=== PATIENT | female | born 1970 | race Hispanic/Latino ===

== ENCOUNTER 2017-06-21 16:13 | Emergency (ER) | payer OTHER ==
[2017-06-21 16:44] VITALS: TEMP 97.5
--- NOTE | 2017-06-21 16:54 | ED PDOC ---
Arrival/HPI - General Chief Complaint: Headache Time Seen by Provider: 06/21/17 16:17 Historian: Patient - History of Present Illness Narrative History of Present Illness (Text): 06/21/17 16:46 A 46 year old female, whose past medical history includes type 2 diabetes and subdural hematoma in 2010, presents to the emergency department complaining of intermittent frontal headaches for the past 2 weeks. Patient reports she has been feeling off balance and not like herself. Patient is concerned due to her history and presented for further evaluation. Patient denies any fever, chills, nausea, vomiting, abdominal pain, urinary symptoms, chest pain, shortness of breath, cough, lower extremity weakness, visual changes or any other complaints. Time/Duration: Other (2 weeks) Symptom Course: Intermittent Quality: Other Context: Home, Work Past Medical History - Provider Review Nursing Documentation Reviewed: Yes - Infectious Disease Hx of Infectious Diseases: None - Endocrine/Metabolic Hx Diabetes Mellitus Type 1: Yes - Psychiatric Hx Substance Use: No - Surgical History Hx Thyroidectomy: Yes Family/Social History - Physician Review Nursing Documentation Reviewed: Yes Family/Social History: No Known Family HX Smoking Status: Never Smoked Hx Alcohol Use: Yes (1-2 drinks per night) Frequency of alcohol use: Daily Hx Substance Use: No Allergies/Home Meds Allergies/Adverse Reactions: Allergies No Known Allergies Allergy (Verified 06/21/17 16:33) Home Medications: Home Meds Medication Instructions Recorded Confirmed Insulin Aspart [Novolog Flexpen] 1 unit INJ ACHS 06/21/17 06/21/17 Insulin Detemir [Levemir] 32 unit INJ HS 06/21/17 06/21/17 Norethindrone-E.estradiol-Iron 1 tab PO DAILY 06/21/17 06/21/17 [Junel Fe 1 mg-20 Mcg Tablet] Review of Systems - Physician Review All systems were reviewed & negative as marked: Yes - Review of Systems Constitutional: absent: Fevers, Night Sweats Eyes: absent: Vision Changes Respiratory: absent: SOB, Cough Cardiovascular: absent: Chest Pain Gastrointestinal: absent: Abdominal Pain, Nausea, Vomiting Genitourinary Female: absent: Dysuria, Frequency, Hematuria Neurological: Headache, Dizziness Physical Exam Vital Signs Reviewed: Yes Vital Signs Temp Pulse Resp BP Pulse Ox 06/21/17 21:05 79 18 151/97 H 98 06/21/17 17:19 85 18 137/95 H 97 06/21/17 17:02 70 157/107 H 06/21/17 16:37 97.5 F L 85 16 98 06/21/17 16:27 97.5 F L 86 18 154/107 H 96 Temperature: Afebrile Blood Pressure: Hypertensive Pulse: Regular Respiratory Rate: Normal Appearance: Positive for: Well-Appearing, Non-Toxic, Comfortable Pain Distress: None Mental Status: Positive for: Alert and Oriented X 3 - Systems Exam Head: Present: Atraumatic, Normocephalic Pupils: Present: PERRL Extroacular Muscles: Present: EOMI Conjunctiva: Present: Normal Mouth: Present: Moist Mucous Membranes Pharnyx: No: ERYTHEMA, EXUDATE Neck: Present: Normal Range of Motion Respiratory/Chest: Present: Clear to Auscultation, Good Air Exchange. No: Respiratory Distress, Accessory Muscle Use Cardiovascular: Present: Regular Rate and Rhythm, Normal S1, S2. No: Murmurs Abdomen: Present: Normal Bowel Sounds. No: Tenderness, Distention, Peritoneal Signs Back: Present: Normal Inspection Upper Extremity: Present: Normal Inspection. No: Cyanosis, Edema Lower Extremity: Present: Normal Inspection. No: Edema Neurological: Present: GCS=15, CN II-XII Intact, Speech Normal, Motor Func Grossly Intact, Normal Sensory Function, Normal Cerebellar Funct, Gait Normal, Memory Normal Skin: Present: Warm, Dry, Normal Color. No: Rashes Psychiatric: Present: Alert, Oriented x 3, Normal Insight, Normal Concentration Medical Decision Making ED Course and Treatment: 06/21/17 16:46 Impression: A 46 year old female with a frontal headache. Plan: -- Head CT -- EKG -- Labs -- Urinalysis -- Reassess and disposition Progress Notes: EKG shows NSR at 83 BPM with normal intervals, normal axis, no ST/T changes. Interpreted by me. Report Date : 06/21/2017 17:19:56 PROCEDURE: CT HEAD WITHOUT CONTRAST. Dictator : Faisal Hassan IMPRESSION: No evidence of acute intracranial hemorrhage intracranial collection mass effect or midline shift. Mild atrophy for the patient's age. Report Date: 06/21/17 20:22 EXAM: MR Head Without Intravenous Contrast Dictated and Authenticated by: Pete Ramírez MD IMPRESSION: 1. There is a tiny focus of increased signal intensity on the diffusion sequence within the upper medulla. There is no abnormal signal intensity on the remaining sequences. This is suggestive of artifact, although subacute ischemic change cannot be excluded. 2. There are a few foci of high FLAIR signal intensity within the cerebral white matter. This white matter disease is nonspecific as to etiology, as detailed above. 3. There is mild sulcal atrophy. 4. Mucosal thickening/effusion is visualized within the left mastoid air cells, consistent with mild mastoiditis in the absence of trauma. 5. Paranasal sinus disease is noted above. Report Date: 06/21/17 20:29 EXAM: MR Angiography Neck Without Intravenous Contrast Dictated and Authenticated by: Pete Ramírez MD IMPRESSION: 1. There is no significant stenosis or occlusion of the proximal internal carotid arteries bilaterally. 2. There is mild dominance of the left vertebral artery. 3. Due to the limitations of artifact, CTA is suggested. Report Date: 06/21/17 20:40 EXAM: MR Angiography Head Without Intravenous Contrast Dictated and Authenticated by: Pete Ramírez MD IMPRESSION: 1. 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 Otherwise, there is no visualized stenosis or occlusion on this MRA study. 06/21/17 21:20 Patient with noted history. Normal neuro exam. Blood work is unremarkable. Urine shows a possible UTI (she was treated 3 weeks ago with macrobid) - will give amoxicillin. CT brain is negative. MRI done; tiny focus mentioned - spoke with radiologist, who thinks it is most likely artifact. Remainder of MRI /MRA unremarkable. Also noted patient's BP was slightly elevated in ED; she is supposed to be on lisinopril for renal protection but admits to noncompliance. Given dose with improvement. Given symptoms have been going on for weeks and has normal neuro exam - ok for d/c to f/u neuro. She was told to call Dr. Harrison's office tomorrow morning for appointment. - Lab Interpretations Lab Results: 06/21/17 16:35 06/21/17 16:35 Lab Results 06/21/17 17:57: POC Glucose (mg/dL) 121 H 06/21/17 17:04: Urine Color Yellow, Urine Appearance Clear, Urine pH 6.5, Ur Specific [place] 1.020, Urine Protein Negative, Urine Glucose (UA) Negative, Urine Ketones Negative, Urine Blood Trace-intact H, Urine Nitrate Negative, Urine Bilirubin Negative, Urine Urobilinogen 0.2, Ur Leukocyte Esterase Trace H , Urine RBC 2 - 5, Urine WBC 2 - 5, Ur Epithelial Cells 3 - 4, Amorphous Sediment Trace, Urine Bacteria Trace 06/21/17 16:47: POC Glucose (mg/dL) 68 06/21/17 16:35: Sodium 141, Potassium 4.0, Chloride 106, Carbon Dioxide 26, Anion Gap 13, BUN 14, Creatinine 0.8, Est GFR ( Amer) > 60, Est GFR (Non- Af Amer) > 60, Random Glucose 78, Calcium 8.9, Phosphorus 2.5, Magnesium 1.9, Total Bilirubin 0.7, AST 24, ALT 33, Alkaline Phosphatase 50, Lactate Dehydrogenase 356, Total Creatine Kinase 65, Troponin I < 0.01, Total Protein 6.9, Albumin 4.1, Globulin 2.8, Albumin/Globulin Ratio 1.5 06/21/17 16:35: WBC 6.3, RBC 4.38, Hgb 13.6, Hct 39.9, MCV 91.1, MCH 31.1, MCHC 34.1, RDW 12.9, Plt Count 214, MPV 11.6 H, Gran % 49.6 L, Lymph % (Auto) 40.6 H , [place] % (Auto) 6.8 H, Eos % (Auto) 2.2, Baso % (Auto) 0.8, Gran # 3.12, Lymph # 2.6, [place] # 0.4, Eos # 0.1, Baso # 0.05 I have reviewed the lab results: Yes - RAD Interpretation Radiology Orders: 06/21/17 16:46 Brain [HEAD W/O CONTRAST] [CT] Stat 06/21/17 17:27 MRA HEAD WITHOUT CONTRAST [MRI] Stat MRA NECK WITHOUT CONTRAST [MRI] Stat 06/21/17 17:29 BRAIN WITHOUT CONTRAST [MRI] Stat - Medication Orders Current Medication Orders: Discontinued Medications Lisinopril (Zestril) 5 mg PO STAT STA Stop: 06/21/17 16:58 Last Admin: 06/21/17 17:02 Dose: 5 mg - Scribe Statement The provider has reviewed the documentation as recorded by the Ryanibdmitriy Linda Provider Scribe Attestation: All medical record entries made by the Ryanibe were at my direction and personally dictated by me. I have reviewed the chart and agree that the record accurately reflects my personal performance of the history, physical exam, medical decision making, and the department course for this patient. I have also personally directed, reviewed, and agree with the discharge instructions and disposition. Disposition/Present on Arrival - Present on Arrival Any Indicators Present on Arrival: No History of DVT/PE: No History of Uncontrolled Diabetes: No Urinary Catheter: No History of Decub. Ulcer: No History Surgical Site Infection Following: None - Disposition Have Diagnosis and Disposition been Completed?: Yes Diagnosis: Dizziness, Urinary tract infection Disposition: HOME/ ROUTINE Disposition Time: 21:00 Patient Plan: Discharge Patient Problems: Current Active Problems Problem Status Onset Dizziness Acute Urinary tract infection Acute Condition: GOOD Additional Instructions: Take your lisinopril daily as prescribed. Follow up with Dr. Harrison and your primary care doctor. Return to the emergency department if any new concerning symptoms. Prescriptions: Amoxicillin [Amoxil 500 mg Cap] 1 cap PO BID #14 cap Referrals: Epifanio Crowe MD [Primary Care Provider] - Follow up with primary El Harrison MD [Staff Provider] - Follow up with primary Forms: [employer] ([place]ux[place]ish)
[2017-06-21 17:07] LABS: ALB/GLOB RATIO 1.5 (1.1-1.8); ALKALINE PHOSPHATASE 50 U/L (38-133); ALT/SGPT 33 U/L (7-56); AST/SGOT 24 U/L (15-39); BILIRUBIN,TOTAL 0.7 mg/dL (0.2-1.3); BLOOD UREA NITROGEN 14 mg/dL (7-21); CALCIUM 8.9 mg/dL (8.4-10.5); CARBON DIOXIDE 26 mmol/L (21-33); CHLORIDE 106 mmol/L (98-107); GFR AFRICAN-AMERICAN > 60; GLUCOSE,RANDOM 78 mg/dL (70-110); MAGNESIUM 1.9 mg/dL (1.7-2.2); PHOSPHOROUS 2.5 mg/dL (2.5-4.5); SODIUM 141 mmol/L (132-148); TOTAL PROTEIN 6.9 g/dL (5.8-8.3)
[2017-06-21 17:20] VITALS: RESP 18
--- NOTE | 2017-06-21 17:21 | CT ---
PROCEDURE: CT HEAD WITHOUT CONTRAST. HISTORY: headache, dizzy, h/o subdural COMPARISON: None available. TECHNIQUE: Axial computed tomography images were obtained through the head/brain without intravenous contrast. Radiation dose: Total exam DLP = 725.84 mGy-cm. This CT exam was performed using one or more of the following dose reduction techniques: Automated exposure control, adjustment of the mA and/or kV according to patient size, and/or use of iterative reconstruction technique. FINDINGS: HEMORRHAGE: No intracranial hemorrhage. BRAIN: No mass effect or edema. Mild atrophy is noted. VENTRICLES: Unremarkable. No hydrocephalus. CALVARIUM: Unremarkable. PARANASAL SINUSES: Unremarkable as visualized. No significant inflammatory changes. MASTOID AIR CELLS: Unremarkable as visualized. No inflammatory changes. OTHER FINDINGS: None. IMPRESSION: No evidence of acute intracranial hemorrhage intracranial collection mass effect or midline shift. Mild atrophy for the patient's age.
[2017-06-21 17:30] LABS: PH,URINE 6.5 (4.7-8.0); URINE BILIRUBIN NEGATIVE (NEGATIVE); URINE BLOOD TRACE-INTACT (NEGATIVE); URINE GLUCOSE (UA) NEGATIVE (NEGATIVE); URINE KETONE NEGATIVE (NEGATIVE); URINE LEUKOCYTE ESTERASE TRACE Leu/uL (NEGATIVE); URINE PROTEIN NEGATIVE mg/dL (<30 mg/dL); URINE UROBILINOGEN 0.2 E.U./dL (<1 E.U./dL)
[2017-06-21 17:30] LABS: BASO # 0.05 K/mm3 (0.0-2.0); BASO % 0.8 % (0.0-3.0); EOS # 0.1 (0.0-0.7); EOS % 2.2 % (1.5-5.0); GRAN # 3.12 (1.4-6.5); GRAN % 49.6 % (50.0-68.0); HEMATOCRIT 39.9 % (36.0-48.0); LYMPH # 2.6 (1.2-3.4); LYMPH % 40.6 % (22.0-35.0); MEAN CELL VOLUME 91.1 fl (80.0-105.0); MEAN CORPUSCULAR HEMOGLOBIN 31.1 pg (25.0-35.0); MEAN CORPUSCULAR HGB CONC 34.1 g/dl (31.0-37.0); MEAN PLATELET VOLUME 11.6 fl (7.0-11.0); MONO # 0.4 (0.1-0.6); MONO % 6.8 % (1.0-6.0); RED CELL DISTRIBUTION WIDTH 12.9 % (11.5-14.5); WHITE BLOOD COUNT 6.3 10^3/ul (4.5-11.0)
[2017-06-21 17:38] LABS: URINE APPEARANCE CLEAR (CLEAR); URINE COLOR YELLOW (YELLOW)
[2017-06-21 17:51] LABS: URINE AMORPHOUS SEDIMENT TRACE; URINE BACTERIA TRACE (NEG)
[2017-06-21 17:53] LABS: TROPONIN I < 0.01 ng/mL
--- NOTE | 2017-06-21 20:22 | MRI ---
EXAM: MR Head Without Intravenous Contrast EXAM DATE/TIME: 06/21/2017 5:29 PM CLINICAL HISTORY: The patient age is 46 years old and is female; Signs and symptoms; Dizziness; Additional info: Headache; Dizzy; H/o subdural Facility exam id and description: Mri br s brain without contrast TECHNIQUE: Magnetic resonance images of the head/brain without intravenous contrast in multiple planes. COMPARISON: CT - HEAD W/O CONTRAST 06/21/2017 5:02:35 PM FINDINGS: Brain: There are a few foci of high FLAIR signal intensity within the cerebral white matter. There is no mass effect or restricted diffusion associated with these foci. This white matter disease is nonspecific as to etiology. Possible etiologies include chronic small vessel ischemic disease, foci of demyelination, post-traumatic change, as well as additional infectious, inflammatory and autoimmune etiologies. There is mild sulcal atrophy. A kenrick cisterna magna variant is visualized. No cerebral edema. Brainstem: There is a tiny focus of increased signal intensity on the diffusion sequence within the upper medulla. There is no abnormal signal intensity on the remaining sequences. This is suggestive of artifact, although subacute ischemic change cannot be excluded. Ventricles: No ventriculomegaly. Bones/joints: No acute abnormality. Sinuses: A mucous retention cyst or polyp is visualized within the right maxillary sinus. Polypoid mucosal thickening is identified within several ethmoid air cells. There is polypoid mucosal thickening of the left maxillary sinus. Mastoid air cells: Mucosal thickening/effusion is visualized within the left mastoid air cells, consistent with mild mastoiditis in the absence of trauma. Orbits: No acute abnormality, as visualized. IMPRESSION: 1. There is a tiny focus of increased signal intensity on the diffusion sequence within the upper medulla. There is no abnormal signal intensity on the remaining sequences. This is suggestive of artifact, although subacute ischemic change cannot be excluded. 2. There are a few foci of high FLAIR signal intensity within the cerebral white matter. This white matter disease is nonspecific as to etiology, as detailed above. 3. There is mild sulcal atrophy. 4. Mucosal thickening/effusion is visualized within the left mastoid air cells, consistent with mild mastoiditis in the absence of trauma. 5. Paranasal sinus disease is noted above.
--- NOTE | 2017-06-21 20:29 | MRI ---
EXAM: MR Angiography Neck Without Intravenous Contrast EXAM DATE/TIME: 06/21/2017 5:27 PM CLINICAL HISTORY: The patient age is 46 years old and is female; Signs and symptoms; Dizziness and giddiness; Additional info: Dizzy; H/o subdural hematoma Facility exam id and description: Mri mra necks mra neck without contrast TECHNIQUE: Magnetic resonance angiography images of the neck without intravenous contrast. COMPARISON: No relevant prior studies available. FINDINGS: Artifacts: Artifact limits the 2-D [id number] images. Right common carotid artery: The right common carotid artery is patent, although limited by artifact. No definitive stenosis. No occlusion. Right internal carotid artery: There is no significant stenosis or occlusion of the proximal internal carotid arteries bilaterally. Right external carotid artery: No occlusion. Right vertebral artery: Aside from the artifact limiting the distal right vertebral artery, there is no significant stenosis or occlusion. Left common carotid artery: The left common carotid artery and extend out of the [id number] of the study. Otherwise, the left common carotid artery is patent. Artifact limits evaluation of the left common carotid artery. No occlusion. Left internal carotid artery: See above. Left external carotid artery: No occlusion. Left vertebral artery: There is mild dominance of the left vertebral artery. Aside from the artifact limiting the distal left vertebral artery, there is no significant stenosis or occlusion. CAROTID STENOSIS REFERENCE USING NASCET CRITERIA: % ICA stenosis = (1 - narrowest ICA diameter/diameter of distal cervical ICA) x 100. Mild - <50% stenosis. Moderate - 50-69% stenosis. Severe - 70-94% stenosis. Near occlusion - 95-99% stenosis. Occluded - 100% stenosis. IMPRESSION: 1. There is no significant stenosis or occlusion of the proximal internal carotid arteries bilaterally. 2. There is mild dominance of the left vertebral artery. 3. Due to the limitations of artifact, CTA is suggested.
--- NOTE | 2017-06-21 20:41 | MRI ---
EXAM: MR Angiography Head Without Intravenous Contrast EXAM DATE/TIME: 06/21/2017 5:27 PM CLINICAL HISTORY: The patient age is 46 years old and is female; Signs and symptoms; Dizziness and giddiness; Additional info: Dizzy; H/o subdural hematoma Facility exam id and description: Mri mra heads mra head without contrast TECHNIQUE: Magnetic resonance angiography images of the head without intravenous contrast. COMPARISON: CT - HEAD W/O CONTRAST 06/21/2017 5:02:35 PM FINDINGS: Right internal carotid artery: No acute findings. Intracranial segment is patent with no significant stenosis. No aneurysm. 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 No occlusion. No aneurysm. Right middle cerebral artery: No occlusion or significant stenosis. No aneurysm. Right posterior cerebral artery: No occlusion or significant stenosis. No aneurysm. Right vertebral artery: The distal vertebral arteries are incompletely visualized. No visualized stenosis or occlusion. Left internal carotid artery: No acute findings. Intracranial segment is patent with no significant stenosis. No aneurysm. Left anterior cerebral artery: No occlusion or significant stenosis. No aneurysm. Left middle cerebral artery: No occlusion or significant stenosis. No aneurysm. Left posterior cerebral artery: No occlusion or significant stenosis. No aneurysm. Left vertebral artery: See above. Basilar artery: No occlusion or significant stenosis. No aneurysm. IMPRESSION: 1. 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 Otherwise, there is no visualized stenosis or occlusion on this MRA study.
[2017-06-21 21:06] VITALS: BP 151/97; PULSE 79; O2SAT 98
--- NOTE | 2017-06-22 09:48 | CARD ---
APPROVED REPORT EKG Measurement Heart [id number] <Conclusion> Normal sinus rhythm with sinus arrhythmia Normal ECG
== END 2017-06-21 21:08 | disposition home or self-care (01) ==
LOC: ED 16:13
DX: R42 Dizziness and giddiness (principal); N39.0 Urinary tract infection, site not specified; E11.9 Type 2 diabetes mellitus without complications

== ENCOUNTER 2018-03-20 21:27 | Emergency (ER) | payer OTHER ==
[2018-03-20 21:42] VITALS: TEMP 98.4; BMI 25.0
[2018-03-20] MEDS ORDERED: Dextrose 5%/0.45% NS 500 ML IV SCH (21:45)
[2018-03-20] MEDS ORDERED: Dextrose 5%/0.9% NS 500 ML IV SCH (21:45)
--- NOTE | 2018-03-20 21:45 | ED PDOC ---
Arrival/HPI - General Time Seen by Provider: 03/20/18 21:32 Historian: Patient - Critical Care Critical Care Minutes: 30 minutes - History of Present Illness Narrative History of Present Illness (Text): 03/20/18 21:39 47 year old female, whose past medical history includes IDDM, presents to the emergency department complaining of mixing her diabetes medications tonight. Patient regularly takes 10-11 units of Levemir, but instead took 32 units of her fast acting Novolag medication. Patient states she took 2 glucose tables earlier as well. Patient denies any pain. Patient denies any fever, chills, chest pain, shortness of breath, nausea, vomiting, diarrhea, urinary symptoms, back pain, neck pain, headache, dizziness, or any other complaints. PMD: Dr. Crowe Time/Duration: Prior to Arrival Symptom Onset: Sudden Symptom Course: Unchanged Activities at Onset: Light Context: Home Past Medical History - Provider Review Nursing Documentation Reviewed: Yes - Infectious Disease Hx of Infectious Diseases: None - Endocrine/Metabolic Hx Diabetes Mellitus Type 1: Yes - Psychiatric Hx Substance Use: No - Surgical History Hx Thyroidectomy: Yes Family/Social History - Physician Review Nursing Documentation Reviewed: Yes Family/Social History: No Known Family HX Smoking Status: Never Smoked Hx Alcohol Use: Yes (1-2 drinks per night) Hx Substance Use: No Allergies/Home Meds Allergies/Adverse Reactions: Allergies No Known Allergies Allergy (Verified 03/20/18 21:33) Home Medications: Home Meds Medication Instructions Recorded Confirmed Insulin Aspart [Novolog Flexpen] 1 unit INJ ACHS 06/21/17 03/20/18 Insulin Detemir [Levemir] 32 unit INJ HS 06/21/17 03/20/18 Norethindrone-E.estradiol-Iron 1 tab PO DAILY 06/21/17 03/20/18 [Junel Fe 1 mg-20 Mcg Tablet] Review of Systems - Physician Review All systems were reviewed & negative as marked: Yes - Review of Systems Constitutional: absent: Fevers, Other (Chills) Respiratory: absent: SOB Cardiovascular: absent: Chest Pain Gastrointestinal: absent: Diarrhea, Nausea, Vomiting Genitourinary Female: absent: Dysuria, Frequency, Hematuria Musculoskeletal: absent: Back Pain, Neck Pain Neurological: absent: Headache, Dizziness Physical Exam Vital Signs Reviewed: Yes Vital Signs Temp Pulse Resp BP Pulse Ox 03/20/18 23:27 96 H 18 142/88 99 03/20/18 23:00 92 H 16 136/90 100 03/20/18 21:35 98.4 F 124 H 18 155/84 H 100 Temperature: Afebrile Blood Pressure: Hypertensive Pulse: Tachycardic Respiratory Rate: Normal Appearance: Positive for: Well-Appearing, Non-Toxic, Comfortable Pain Distress: None Mental Status: Positive for: Alert and Oriented X 3 - Systems Exam Head: Present: Atraumatic, Normocephalic Pupils: Present: PERRL Extroacular Muscles: Present: EOMI Conjunctiva: Present: Normal Mouth: Present: Moist Mucous Membranes Neck: Present: Normal Range of Motion Respiratory/Chest: Present: Clear to Auscultation, Good Air Exchange. No: Respiratory Distress, Accessory Muscle Use Cardiovascular: Present: Regular Rate and Rhythm, Normal S1, S2. No: Murmurs Abdomen: No: Tenderness, Distention, Peritoneal Signs Back: Present: Normal Inspection Upper Extremity: Present: Normal Inspection. No: Cyanosis, Edema Lower Extremity: Present: Normal Inspection. No: Edema Neurological: Present: GCS=15, CN II-XII Intact, Speech Normal Skin: Present: Warm, Dry, Normal Color. No: Rashes Psychiatric: Present: Alert, Oriented x 3, Normal Insight, Normal Concentration Medical Decision Making ED Course and Treatment: 03/20/18 21:33 Impression: 47 year old female presents complaining of taking 32 units of her fast acting Novolag medication instead of 10-11 units of Levemir. Differential Diagnosis included but are not limited to: Hypoglycemia Plan: -- Labs -- Dextrose IV -- Fingerstick -- Reassess and disposition Progress Notes: 03/20/18 22:25 Patient's sugar was 37. Dextrose 50% Inj was administered. 03/20/18 23:50 Patients finger sticks improved while in ED. She was advised that she needed to be watched longer to make sure her glucose did not dip but she did not want to stay any longer. She is AAOx3. She has capacity to make decisions. Her will take her home. Leaving Against Medical Advice (AMA): The patient is choosing to leave against medical advice. I have personally explained to the patient that choosing to do so may result in permanent bodily harm or . I have discussed at great length that without further evaluation and monitoring there may be unforeseen circumstances and/or deterioration causing permanent bodily harm or as a result of their choice. The patient is alert, oriented, and shows the mental capacity to make clear decisions regarding the patients health care at this time. The patient continues to wish to leave against medical advice. In light of the patients decision to leave against medical advice, follow-up has been arranged and the patient is aware of the importance to following up as instructed. The patient has been advised that they should return to the emergency room immediately if they change their mind at any time, or if their condition begins to change or worsen in any way. - Critical Care Critical Care Minutes: 30 minutes - Lab Interpretations Lab Results: 03/20/18 21:35 03/20/18 21:35 Lab Results 03/20/18 22:53: POC Glucose (mg/dL) 106 03/20/18 22:18: POC Glucose (mg/dL) 39 L 03/20/18 21:35: Sodium 144, Potassium 3.4 L, Chloride 107, Carbon Dioxide 22, Anion Gap 19, BUN 11, Creatinine 1.1, Est GFR ( Amer) > 60, Est GFR (Non- Af Amer) 53, Random Glucose 117 H, Calcium 9.3 03/20/18 21:35: WBC 8.5 D, RBC 4.56, Hgb 14.3, Hct 40.4, MCV 88.6, MCH 31.4, MCHC 35.4, RDW 12.5, Plt Count 258, MPV 10.8, Gran % 56.2, Lymph % (Auto) 38.8 H , Clinch % (Auto) 2.8, Eos % (Auto) 1.8, Baso % (Auto) 0.4, Gran # 4.75, Lymph # ( Auto) 3.3, Clinch # (Auto) 0.2, Eos # (Auto) 0.2, Baso # (Auto) 0.03 I have reviewed the lab results: Yes - Medication Orders Current Medication Orders: Discontinued Medications Dextrose (Dextrose 50% Inj) 50 ml IVP STAT STA Stop: 03/20/18 22:20 Last Admin: 03/20/18 22:25 Dose: 50 ml IVP Administration Document 03/20/18 22:25 CNR (Rec: 03/20/18 22:25 CNR [id number]) Charges for Administration # of IVP Administrations 1 Dextrose/Sodium Chloride (Dextrose 5%/0.45% Ns 1000 Ml) 500 mls @ 70 mls/hr IV .[id number] [id number] Last Admin: 03/20/18 21:42 Dose: 70 mls/hr eMAR Start Stop Document 03/20/18 21:42 CNR (Rec: 03/20/18 21:43 CNR [id number]) Intravenous Solution Start Date 03/20/18 Start Time 21:42 Potassium Chloride (K-Dur 20 Meq Er Tab) 40 meq PO STAT STA Stop: 03/20/18 22:09 Last Admin: 03/20/18 22:25 Dose: 40 meq - Scribe Statement The provider has reviewed the documentation as recorded by the Nicolette Hubbard Provider Scribe Attestation: All medical record entries made by the Scribe were at my direction and personally dictated by me. I have reviewed the chart and agree that the record accurately reflects my personal performance of the history, physical exam, medical decision making, and the department course for this patient. I have also personally directed, reviewed, and agree with the discharge instructions and disposition. Disposition/Present on Arrival - Present on Arrival Any Indicators Present on Arrival: No History of DVT/PE: No History of Uncontrolled Diabetes: No Urinary Catheter: No History Surgical Site Infection Following: None - Disposition Have Diagnosis and Disposition been Completed?: Yes Diagnosis: Hypoglycemia, Medication overdose Disposition: AGAINST MEDICAL ADVICE Disposition Time: 23:50 Condition: GOOD Additional Instructions: Ms Tesfaye, thank you for letting us take care of you today. Your provider was Dr. Clark You were treated for Hypoglycemia, Accident Overdose of Medication. The emergency medical care you received today was directed at your acute symptoms. If you were prescribed any medication, please fill it and take as directed. It may take several days for your symptoms to resolve. Return to the Emergency Department if your symptoms worsen, do not improve, or if you have any other problems. Please contact your doctor or call one of the physicians/clinics you have been referred to that are listed on the Patient Visit Information form that is included in your discharge packet. Bring any paperwork you were given at discharge with you along with any medications you are taking to your follow up visit. Our treatment cannot replace ongoing medical care by a primary care provider (PCP) outside of the emergency department. Thank you for allowing the [facility] team to be part of your care today. If you had an X-Ray or CT scan: A Radiologist will review the ED reading if any change in treatment is needed we will contact you. If you had a blood, urine, or wound culture: It will take several days for the results, if any change in treatment is needed we will contact you. If you had an STI test: It will take 48 hours for the results. Please call after 1 week if you have not heard back. Referrals: Epifanio Crowe MD [Primary Care Provider] - Follow up with primary Forms: WORK NOTE
[2018-03-20 21:51] LABS: BASO # 0.03 K/mm3 (0.0-2.0); BASO % 0.4 % (0.0-3.0); EOS # 0.2 (0.0-0.7); EOS % 1.8 % (1.5-5.0); GRAN # 4.75 (1.4-6.5); GRAN % 56.2 % (50.0-68.0); HEMOGLOBIN 14.3 g/dL (12.0-16.0); LYMPH # 3.3 (1.2-3.4); LYMPH % 38.8 % (22.0-35.0); MEAN CELL VOLUME 88.6 fl (80.0-105.0); MEAN CORPUSCULAR HEMOGLOBIN 31.4 pg (25.0-35.0); MEAN CORPUSCULAR HGB CONC 35.4 g/dl (31.0-37.0); MEAN PLATELET VOLUME 10.8 fl (7.0-11.0); MONO # 0.2 (0.1-0.6); MONO % 2.8 % (1.0-6.0); RBC 4.56 10^6/uL (3.5-6.1); RED CELL DISTRIBUTION WIDTH 12.5 % (11.5-14.5); WHITE BLOOD COUNT 8.5 10^3/ul (4.5-11.0)
[2018-03-20 22:05] LABS: BLOOD UREA NITROGEN 11 mg/dL (7-21); CALCIUM 9.3 mg/dL (8.4-10.5); GFR AFRICAN-AMERICAN > 60; GFR NON-AFRICAN AMERICAN 53
[2018-03-20] MEDS ORDERED: Potassium Chloride 20 mEq ER Tab PO STA (22:08)
[2018-03-20] MEDS ORDERED: Dextrose 50% SYRINGE Inj (50 ml) IVP STA (22:19)
[2018-03-21 02:01] VITALS: BP 142/88; PULSE 96; RESP 18; O2SAT 99
== END 2018-03-20 23:27 | disposition left against medical advice (07) ==
LOC: ED 21:27
DX: T38.3X1A Poisoning by insulin and oral hypoglycemic [antidiabetic] drugs, accidental (unintentional), initial encounter (principal); E10.649 Type 1 diabetes mellitus with hypoglycemia without coma; Z79.4 Long term (current) use of insulin; Y92.009 Unspecified place in unspecified non-institutional (private) residence as the place of occurrence of the external cause
CPT/HCPCS: 80048; 82948; 85025; 96374; 99291; J7042